=== PATIENT | female | born 1940 | race Caucasian/White ===

== ENCOUNTER → 2022-06-24 09:34 | Outpatient (CLI) | payer MEDICARE, BC, SELFPAY ==
--- NOTE | 2022-06-24 | DI.NM.S_ITS ---
PROCEDURE: NM BONE SCAN WHOLE BODY RADIOPHARMACEUTICAL: 19.2 mCi Tc-99m MDP IV. INDICATIONS: HISTORY OF BREAST CANCER TECHNIQUE: Delayed whole-body scintigrams were obtained approximately 3-4 hours after intravenous injection of radiotracer. Anterior and posterior views were acquired from vertex to feet. COMPARISON: None. FINDINGS: Status post right above knee amputation. Degenerative uptake of radiotracer at the acromioclavicular and glenohumeral joints as well as the bilateral hip joints. No evidence of metastatic disease. IMPRESSION: No evidence of bony metastatic disease. Dictated by: Jorge Luis Barajas M.D. on 06/24/2022 at 14:33 Transcribed by: KETAN on 06/24/2022 at 14:34 Approved by: Jorge Luis Barajas M.D. on 06/24/2022 at 16:05
== END ==
PROVIDERS: Referring Provider Internal Medicine Hematology & Oncology; Visit Provider Internal Medicine Hematology & Oncology
DX: C54.1 Malignant neoplasm of endometrium; Z85.3 Personal history of malignant neoplasm of breast
CPT/HCPCS: 78306; A9503

== ENCOUNTER → 2022-06-24 09:39 | Outpatient (CLI) | payer MEDICARE, BC, SELFPAY ==
--- NOTE | 2022-06-24 | DI.MRI.S_ITS ---
PROCEDURE: MR BRAIN (IAC) WWO CON INDICATIONS: SUDDEN HEARING LOSS/TINNITUS TECHNIQUE: Noncontrast sagittal T1 spin echo, axial FLAIR, axial gradient echo, axial diffusion and ADC through the brain. Axial thin-slice 3D CISS, coronal TruFISP, axial T1 spin echo with fat saturation through the internal auditory canals. After the administration of contrast, thin slice axial and coronal T1 spin echo with fat saturation through the internal auditory canals, and axial and coronal and sagittal T1 spin echo with fat saturation through the brain. COMPARISON: None. FINDINGS: Image quality: Excellent. Cerebellopontine angles: No cerebellopontine angle masses. Inner ear structures appear normally formed. No suspicious enhancement in the internal auditory canal or along the course of the 7th cranial nerve. CSF spaces: Ventricles are normal in size and shape. No extra-axial fluid collections. Basal cisterns are patent. Brain: No intracranial bleeds or mass effects. Mild diffuse cerebral volume loss. Mild degree of patchy high FLAIR signal within the periventricular and subcortical white matter. Dejesus-white matter interface is intact. No abnormal intracranial enhancement. Diffusion weighted images demonstrate no acute ischemic insults. Brainstem appears normal. Normal intravascular flow voids are present. Skull and face: Calvarial marrow signal is normal. Orbits appear normal. Sinuses: Sinuses and mastoids are clear. IMPRESSION: 1. Negative evaluation of the internal auditory canals. No explanation for hearing loss or tinnitus. 2. Mild volume loss and small vessel ischemic disease. 3. No acute process. No recent infarct. Dictated by: Jorge Luis Barajas M.D. on 06/24/2022 at 12:34 Transcribed by: KETAN on 06/24/2022 at 12:42 Approved by: Jorge Luis Barajas M.D. on 06/24/2022 at 16:03
== END ==
PROVIDERS: PCP Internal Medicine; Referring Provider Otolaryngology; Visit Provider Otolaryngology
DX: H91.22 Sudden idiopathic hearing loss, left ear; H93.12 Tinnitus, left ear; C54.1 Malignant neoplasm of endometrium; Z85.3 Personal history of malignant neoplasm of breast
CPT/HCPCS: 70553; 78306; A9503

== ENCOUNTER → 2022-08-05 14:34 | Outpatient (CLI) | payer MEDICARE, BC, SELFPAY ==
--- NOTE | 2022-08-05 | DI.MRI.S_ITS ---
BREAST MRI OF BOTH BREASTS: 08/05/2022 CLINICAL: Breast Cancer. Comparison is made to exams dated: 10/24/2021 ultrasound, 10/24/2021 ultrasound, 10/24/2021 mammogram - [facility], 11/06/2017 mammogram - [facility], and 07/27/2015 mammogram - [facility]. PROCEDURE: MR BREAST BI WO/W CON INDICATIONS: BREAST CANCER TECHNIQUE: The patient was placed prone in a dedicated breast imaging coil. Precontrast axial STIR and 3D FLASH without fat saturation sequences were obtained. Both before and after bolus injection of contrast, sequential 1-minute axial 3D FLASH with fat saturation sequences for 3 time points, with subtraction images and maximum intensity projections (MIP's) generated. Delayed sagittal FLASH images with fat saturation were also obtained. Computer-aided detection, including computer algorithm analysis of MRI image data for lesion detection and characterization, pharmacokinetic analysis, with further physician review for interpretation, was performed. FINDINGS: Image quality: Good Mild background parenchymal enhancement in the right breast. Minimal background parenchymal enhancement of the left breast. Right breast: There are numerous intrinsically T1 hyperintense tubular structures right breast. On subtraction images, no nodular enhancement is noted. There is no suspicious non-mass enhancement, mass, or focus identified. Left breast: No suspicious enhancement, mass, or focus identified. Miscellaneous: No suspicious adenopathy identified in the axillary or internal mammary chains. Partially visualized suspected fibrotic changes are seen in the anterior lungs. Postsurgical changes are present. IMPRESSION: BENIGN IMPRESSION: No suspicious mass, non-mass enhancement, or focus in either breast. Numerous T1 hyperintense tubular structures are present, without suspicious nodular enhancement on subtraction images, suspected dilated ducts with hemorrhagic or proteinaceous debris. Clinical correlation is recommended for any discharge. If present, consider followup mammogram and ultrasound depending on clinical suspicion. In addition to MRI, consider continued mammographic surveillance given cancer history. In addition, consider CT chest to further evaluate the lung opacities, likely representing radiation fibrosis. BIRADS 2 COMMENT: The imaging literature indicates that a negative contrast breast MRI examination has a high sensitivity and a moderate specificity for detecting and excluding invasive carcinomas to a detection threshold of 3-5 mm; nonetheless, appropriate clinical and mammographic follow-up are recommended. MRI is not sensitive for detecting DCIS (ductal carcinoma in situ) and may not detect large invasive neoplasms that show only minimal enhancement such as mucinous carcinoma. If there are suspicious calcifications or clinically worrisome palpable masses, then biopsy should still be considered. Invasive neoplasms can be hidden by co-existent and benign enhancement caused by mastitis, hormone therapy effects, radiation therapy, , and recent biopsy or surgery. False positive examinations can occur in a number of circumstances, including breasts that have recently been subject to invasive procedures and those that contain atypical ductal hyperplasia, hormonally stimulated glandular tissue, fat necrosis, or radial scars. This exam was interpreted at Station ID: [id number]. Electronically Signed By: Nate Katz M.D. lc/:08/06/2022 13:00:42 letter sent: Clinical Evaluation ACR BI-RADS Category 2: Benign Finding(s) [id number]
== END ==
PROVIDERS: PCP Internal Medicine; Referring Provider Internal Medicine Hematology & Oncology; Visit Provider Internal Medicine Hematology & Oncology
DX: Z12.39 Encounter for other screening for malignant neoplasm of breast (principal); Z85.3 Personal history of malignant neoplasm of breast
CPT/HCPCS: 77049; A9579

== ENCOUNTER → 2023-07-09 12:33 | Outpatient (CLI) | payer MEDICARE, BC, SELFPAY ==
--- NOTE | 2023-07-09 12:35 | DI.MRI.S_ITS ---
PROCEDURE: MR AB PANCREATIC/MRCP PROTOCOL INDICATIONS: OSTEOSARCOMA RIGHT LEG TECHNIQUE: Coronal HASTE through the abdomen, axial 2-D FLASH in- and [id number], and breath-hold T2 FSE with fat saturation through the biliary system and pancreas. Oblique coronal and axial thin-slice HASTE, radial thick-slab HASTE centered on the extrahepatic bile ducts. Intravenous secretin: Not requested. COMPARISON: None. FINDINGS: Image quality: Diagnostic. Gallbladder: No gallstones or wall thickening. Biliary ducts: No biliary dilation. Pancreas: No ductal dilation. OTHER: Lung bases: Unremarkable. Liver: No solid mass. Multiple hepatic cysts, without suspicious features. Spleen: Size is within normal limits. Adrenal Glands: No adrenal nodules. Kidneys and Ureters: No hydronephrosis. No solid mass. No complex renal cystic lesion which requires follow up. Bosniak 2 cystic mass along the superior pole of the right kidney containing a thin internal septation. Stomach and Bowel: Normal colonic caliber, without significant wall thickening. Peritoneum: No abnormal intraperitoneal fluid. No free air. Ventral Wall: No hernia. Abdominal Nodes: No retroperitoneal or mesenteric adenopathy by size criteria. Vessels: Aorta and inferior vena cava are normal in size. Bones: No aggressive osseous abnormality. IMPRESSION: No pancreatic abnormality. Benign renal and hepatic cysts. Dictated by: Zachariah Ochoa M.D. on 07/09/2023 at 18:29 Approved by: Zachariah Ochoa M.D. on 07/09/2023 at 18:30
== END ==
PROVIDERS: PCP Internal Medicine; Referring Provider Internal Medicine; Visit Provider Internal Medicine
DX: C40.21 Malignant neoplasm of long bones of right lower limb (principal); D13.6 Benign neoplasm of pancreas; K76.89 Other specified diseases of liver; N28.1 Cyst of kidney, acquired
CPT/HCPCS: 74183; A9579

== ENCOUNTER 2023-11-25 12:48 | Emergency (ER) | payer MEDICARE, BC, SELFPAY ==
[2023-11-25 13:04] VITALS: BP 196/91; PULSE 83; RESP 18; TEMP 36.8; O2SAT 97; BMI 18.1
--- NOTE | 2023-11-25 13:59 | ED.EYEPROB ---
HPI - Eye Problem General Chief complaint: Eye Problems Stated complaint: very painful R bloody eye Time Seen by Provider: 11/25/23 13:59 Source: patient Mode of arrival: Wheelchair History of Present Illness HPI Narrative: Patient with past medical history of autoimmune disease comes into the ED from home for evaluation of redness to her red eye. She states that she woke up noticed some redness. States that it is slightly painful when touching but does not have any actual pain with extraocular motion. Denies any trauma or falls. Does wear glasses at baseline denies any difficulty with her vision. No other symptoms no known trauma not on any blood thinners Related Data Allergies Allergy/AdvReac Type Severity Reaction Status Date / Time oxycodone Allergy Verified 11/25/23 13:11 Penicillins Allergy Verified 11/25/23 13:11 streptomycin Allergy Verified 11/25/23 13:11 hydrocodone AdvReac Verified 11/25/23 13:11 Review of Systems Review of Systems Narrative: General: Denies fever, chills, weight loss HEENT: Positive redness to the right eye, Denies headache, eye drainage, eye irritation, head trauma, sore throat, voice change Cardiovascular: Denies any chest pain, palpitations, shortness of breath, tachycardia Respiratory: Denies any shortness of breath, cough, wheeze, stridor GI/: Denies any abdominal pain, nausea, vomiting, diarrhea, bright red blood per rectum, melanotic stools, urinary frequency, urinary retention, dysuria, hematuria MSK: Denies any joint pain, muscle pains, swelling Skin: Denies any rashes, lesions, discoloration Neuro: Denies any headache, lightheadedness, dizziness, fainting, weakness Psych: Denies SI/HI Patient History Social History Smoking Status: Never smoker Smoking Status: Never smoker Substance Use Type: does not use Exam Narrative Exam Narrative: General: Cooperative, comfortable, well-developed, not in acute distress HEENT: Normocephalic, atraumatic, PERRLA, eyelids normal, subsequent conjunctiva hemorrhage noted to the right eye not crossing the pupil, pressure in left eye 19, pressure in right eye 18, no visual corneal abrasions using fluorescein staining and Wood's lamp. Negative Rhea sign Neck: Active full range of motion, atraumatic Chest: Normal to inspection, negative crepitus, no overlying erythema ecchymosis Respiratory: Normal respiratory effort, not in acute respiratory distress, clear to auscultation bilaterally negative cough, wheeze, tachypnea, rhonchi, rales Cardiology: Regular rate rhythm negative gallop, murmur, rubs GI/: Normal to inspection, soft, nonrigid, no tenderness to palpation, exam deferred MSK: Full range of active range of motion of all 4 extremities, atraumatic Skin: No rashes lesions noted Neuro: Alert awake oriented x3, moves all 4 extremities spontaneously, cranial nerves intact, able to answer all questions appropriately follows commands appropriately Psych: Cooperative, negative suicidal or homicidal ideations Initial Vital Signs Initial Vital Signs: Vital Signs Temperature 98.2 F 11/25/23 13:04 Pulse Rate 83 11/25/23 13:04 Respiratory Rate 18 11/25/23 13:04 Blood Pressure 196/91 H 11/25/23 13:04 Pulse Oximetry 97 11/25/23 13:04 Oxygen Delivery Method Room Air 11/25/23 13:04 Course Orders Ordered: ED Orders 11/25/23 13:13 Consult to FERMENTER - Rework Machine Operator Stat Discontinued Medications Fluorescein Sodium (Fluorescein 1 Mg Strip) 1 mg EYE-BOTH NOW ONE Stop: 11/25/23 14:05 Last Admin: 11/25/23 14:13 Dose: 1 mg Documented By: JEANNIE Proparacaine HCl (Proparacaine 0.5% Ophth Mirela) 1 drops EYE-BOTH NOW ONE Stop: 11/25/23 14:05 Last Admin: 11/25/23 14:13 Dose: 1 drop Documented By: JEANNIE Vital Signs Vital signs: Vital Signs - 8 hr 11/25/23 16:28 Pulse Rate 81 Respiratory Rate 18 Pulse Oximetry 97 Oxygen Delivery Method Room Air MDM - Eye Problem Differential Diagnosis Differential diagnosis: Likely corneal abrasion, conjunctivitis, hyphema and subconjunctival hemorrhage MDM Narrative Medical decision making narrative: Patient is a 83-year-old female with past medical history of autoimmune disease comes into the ED for nontraumatic redness to her right eye. States that she noticed the redness when she woke up states that it does not affect her vision, does not describe any actual pain to the eye itself but does notice some irritation near her eyelid. Denies any foreign body sensation to her eye. Patient had fluorescein staining with Wood's lamp in the emergency department that did not show any corneal abrasions. Ocular pressures were within normal limits left eye 19, right eye 18. Patient did not have any signs of proptosis, no extraocular motion pain. Patient wears glasses at baseline visual acuity is at baseline. Physical exam and history consistent with subconjunctival hemorrhage. She was instructed to follow up with Ophthalmology and primary care doctor in outpatient setting. She will be safe for discharge home with outpatient follow up Discharge Plan Departure Patient Disposition: Home Clinical Impression: Subconjunctival hemorrhage Activity Restrictions/Additional Instructions: Please follow-up with your county director welfare and primary care doctor Please read the discharge instructions sheet carefully and bring all papers to all doctor follow-up visits, as it may contain information that your doctor may want to see. Disease processes change and evolve, if your symptoms worsen or if you develop any new symptoms that are concerning to you please return for evaluation. Your evaluation today does not show any evidence of any life-threatening/serious illnesses requiring admission to the hospital or surgery. Please follow-up with your doctor for re-evaluation in approximately 1 day. Seek immediate medical attention for any worrisome symptoms. Referrals: Kenney Anand MD [Primary Care Provider] - Stand Alone Forms: Patient Portal/API
[2023-11-25] MEDS: FLUORESCEIN 1 MG STRIP EYE-BOTH (14:13)
[2023-11-25] MEDS: PROPARACAINE 0.5% OPHTH SOL 1 DROPS EYE-BOTH (14:13)
[2023-11-25 16:28] VITALS: PULSE 81; RESP 18; O2SAT 97
--- NOTE | 2023-11-25 16:49 | CM.SWNOTE ---
ED BOAT CARPENTER MECHANIC Note Patient presents to the ED via wheelchair with friend due to concern for right eye pain. Patient has hx of macular degeneration, cataracts and hx of breast cancer. It is reported that patient's spouse at [facility] a few weeks ago. Patient's PCP is Kenney Anand, patient has Medicare and supplemental [employer] insurance. BOAT CARPENTER MECHANIC receives consult due to concern for patient's grief and anxiety. BOAT CARPENTER MECHANIC enters room to meet with patient, present in room is patient's friend who provided patient with transportation to the hospital. Patient is wheelchair dependent with one leg. It is reported that patient resides alone in [facility], patient hires a cone treater for duties that she cannot manage around the house and is otherwise independent with ADLs. 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 Patient endorses frustration regarding her spouse's and how he and anxiety and grief. Patient states her life was very intertwined with her spouse and she is having difficulty moving forward towards the new normal. Patient endorses she uses [facility]rans[facility] and relies on friends for transport, patient states she does not have a family or a sense of community. Patient did meet her friend though [facility] and patient is connected with them but has difficulty utilizing services that accommodate her in her wheelchair. Patient endorses interest in a Pentec[employer] counselor and she wants to work through her grief and anger. BOAT CARPENTER MECHANIC provides patient with lists of Pentec[employer]ism counselors that accept her insurance, BOAT CARPENTER MECHANIC also provides patient with grief counseling resources through [facility]. Plan: patient to d/c to home upon medical clearance with friend. JOSÉ Law
== END 2023-11-25 16:28 | disposition home or self-care (01) ==
PROVIDERS: Emergency Provider Student in an Organized Health Care Education/Training Program; PCP Internal Medicine
DX: H11.31 Conjunctival hemorrhage, right eye (principal)
CPT/HCPCS: 99282; 99283

== ENCOUNTER → 2024-03-03 11:51 | Outpatient (CLI) | payer MEDICARE, BC, SELFPAY | PROVIDERS: Family Provider Internal Medicine; PCP Internal Medicine; Referring Provider Internal Medicine; Visit Provider Internal Medicine | DX: R20.2 Paresthesia of skin (principal) | CPT/HCPCS: 95886; 95912 ==

== ENCOUNTER → 2024-03-03 13:15 | Outpatient (CLI) | payer MEDICARE, BC, SELFPAY ==
--- NOTE | 2024-03-03 13:16 | DI.MRI.S_ITS ---
PROCEDURE: MR HEAD/BRAIN WO CON INDICATIONS: severe frontal headaches TECHNIQUE: Non-contrast axial T1 spin echo, axial T2 fast spin echo, sagittal and axial FLAIR, coronal T2 fast spin echo, axial gradient echo, axial diffusion and ADC through the brain. COMPARISON: [facility], MR, MR IAC (BRAIN) WWO CON, 06/24/2022, 10:50. FINDINGS: Image quality: Excellent. CSF spaces: Ventricles appear symmetric in size and shape. Basal cisterns are patent. No extra-axial fluid collections. Brain: No intracranial bleeds or mass effects. There is cerebral volume loss for age. There are periventricular and deep white matter chronic small vessel ischemic changes. Brainstem appears normal. Diffusion-weighted images show no acute infarct. No chronic ischemic insults. Normal intravascular flow voids are present. Skull and face: Calvarial bone marrow is normal in signal. Orbits are normal. Sinuses: Sinuses and mastoids are clear. IMPRESSION: No imaging explanation is found for this patient's presenting symptoms. To the limits of this noncontrast study, no findings of intracranial masses or mass effect can be seen. No hydrocephalus or brain edema can be seen. Dictated by: Rajeev Fenton M.D. on 03/03/2024 at 16:07 Approved by: Rajeev Fenton M.D. on 03/03/2024 at 16:11
== END ==
PROVIDERS: Family Provider Internal Medicine; PCP Internal Medicine; Referring Provider Internal Medicine; Visit Provider Internal Medicine
DX: R51.9 Headache, unspecified (principal); R20.2 Paresthesia of skin
CPT/HCPCS: 70551; 95886; 95912

== ENCOUNTER 2024-06-02 23:27 | Observation (INO) | payer MEDICARE, BC, SELFPAY ==
[2024-06-02 23:31] VITALS: BP 203/98; PULSE 88; RESP 22; TEMP 35.9; O2SAT 96; BMI 16.1
[2024-06-03] VITALS (16 sets, daily range): BP systolic 128–221; BP diastolic 60–102; PULSE 72–96; RESP 14–21; TEMP 36.3–36.4; O2SAT 94–96; BMI 16.1
[2024-06-03 00:26] LABS: Add Manual Diff / Slide Review NO; Basophils Absolute Auto 100 /uL (0-100); Basophils Percent Auto 1.4 % (0-2); Eosinophils Absolute Auto 300 /uL (0-450); Eosinophils Percent Auto 3.2 % (2-4); Hematocrit 39.4 % (36-46); Hemoglobin 13.2 g/dL (12.0-16.0); Lymphocytes Absolute Auto 1100 /uL (1100-4500); Lymphocytes Percent Auto 12.5 % (25-40); Mean Corpuscular HGB Conc 33.6 % (30-36); Mean Corpuscular Hemoglobin 29.3 PG (26-34); Mean Corpuscular Volume 87.2 fL (80-100); Monocytes Absolute Auto 400 /uL (0-900); Monocytes Percent Auto 4.6 % (3-14); Neutrophils Absolute Auto 7000 /uL (1500-7000); Neutrophils Percent Auto 78.3 % (50-75); Platelet Count 238 X10^3/uL (150-400); Red Blood Cell Count 4.51 X10^6/uL (4.0-5.2); Red Cell Distribution Width 13.7 % (11.6-14.8)
[2024-06-03 00:36] LABS: Alanine Aminotransferase 24 IU/L (<35); Albumin 4.4 g/dL (3.5-5.0); Albumin Globulin Ratio 1.3 (1.0-2.8); Alkaline Phosphatase 94 U/L (38-126); Aspartate Aminotransferase 38 IU/L (14-36); BUN Creatinine Ratio 30.9 (6-22); Bilirubin Total 0.2 mg/dL (0.2-1.3); Blood Urea Nitrogen 17 mg/dL (7-17); Calcium 9.6 mg/dL (8.4-10.2); Carbon Dioxide 31 mmol/L (22-32); Chloride 93 mmol/L (98-107); Estimated Glomerular Filt Rate > 60 mL/min (>60); Globulin 3.5 g/dL (1.7-4.1); Glucose 112 mg/dL (70-99); HEMOLYSIS < 15 (0-50); Lipase 62 U/L (23-300); Potassium 4.6 mmol/L (3.4-5.1); Sodium 129 mmol/L (137-145); Total Protein 7.9 g/dL (6.3-8.2)
[2024-06-03 01:20] LABS: Appearance Urine UA CLEAR; Bilirubin Urine UA NEGATIVE (NEGATIVE); Color Urine UA YELLOW; Glucose Urine UA NEGATIVE (Negative); Ketones Urine UA NEGATIVE (NEGATIVE); Leukocyte Esterase Urine UA NEGATIVE (NEGATIVE); Nitrite Urine UA NEGATIVE (Negative); Occult Blood Urine UA NEGATIVE (Negative); Protein Urine UA NEGATIVE (Negative); Urobilinogen Urine UA 0.2 E.U./dL (0.2)
--- NOTE | 2024-06-03 01:24 | ED.ABDPAIN ---
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 She also reports straining to have a bowel movement only thin pieces come out and she feels nauseous. She was seen 2 weeks ago in the ER for similar complaints and dx suspect gastritis, esophagitis, an entericcolitis with inflammation at the distal colon and rectum and also large fecal loading in the upstream but no definite bowel obstruction. GI was subsequently consulted and told to obtain stool studies and patient was discharged on baclofen and Pepcid. Other than what is stated 14 point review of system is negative. Related Data Home Medications Medication Instructions Recorded Confirmed baclofen 5 mg tablet 5 mg PO 3XD PRN muscle spasm 06/03/24 06/03/24 famotidine 40 mg tablet 40 mg PO QPM heartburn 06/03/24 06/03/24 losartan 25 mg tablet 12.5 mg PO BID 06/03/24 06/03/24 methocarbamol 500 mg tablet 500 mg PO 3XD 06/03/24 06/03/24 verapamil 120 mg tablet 120 mg PO TID 06/03/24 06/03/24 Allergies Allergy/AdvReac Type Severity Reaction Status Date / Time oxycodone Allergy Verified 11/25/23 13:11 Penicillins Allergy Verified 11/25/23 13:11 streptomycin Allergy Verified 11/25/23 13:11 hydrocodone AdvReac Verified 11/25/23 13:11 Review of Systems Review of Systems ROS Unobtainable: All systems reviewed & are unremarkable except as noted in HPI and below Patient History Social History Smoking Status: Never smoker Smoking Status: Never smoker Exam Narrative Exam Narrative: GENERAL: [83] year old patient appears stated age. Thin appearing patient, in mild distress. HEAD: Atraumatic. Normocephalic. EYES: Pupils equal round and reactive. Extraocular motions intact. No scleral icterus. No injection or drainage. ENT: Nose without bleeding, purulent drainage. Throat without erythema, tonsillar hypertrophy or exudate. Airway patent. NECK: Trachea midline. Non tender CARDIOVASCULAR: Regular rate and rhythm without murmurs, gallops, or rubs. RESPIRATORY: Clear to auscultation. Breath sounds equal bilaterally. No wheezes, rales, or rhonchi. GASTROINTESTINAL: Abdomen soft, diffuse TTP but no rebound rigidity or guarding, nondistended. EXTREMITIES: No edema or joint tenderness. R BKA moving all extremities no obvious bone or joint deformity BACK: Nontender without deformity or crepitance. No flank tenderness. NEURO: AOx3. SKIN: No rash or erythema of visible areas Initial Vital Signs Initial Vital Signs: Vital Signs Temperature 96.7 F L 06/02/24 23:31 Pulse Rate 88 06/02/24 23:31 Respiratory Rate 22 06/02/24 23:31 Blood Pressure 203/98 H 06/02/24 23:31 Pulse Oximetry 96 06/02/24 23:31 Oxygen Delivery Method Room Air 06/02/24 23:31 Course Orders Ordered: ED Orders 06/03/24 00:05 EKG-12 Lead Stat 06/03/24 00:15 Complete Blood Count AUTO DIFF Stat Comprehensive Metabolic Panel Stat Lipase Stat 06/03/24 01:15 Urinalysis and Microscopic Stat 06/03/24 01:26 CT abdomen pelvis w con Stat Urine Microscopic Stat Ondansetron HCl (Ondansetron 4 Mg/2 Ml Inj) 4 mg IV NOW PRN PRN Reason: Nausea And Vomiting Ondansetron HCl (Ondansetron 4 Mg Odt) 4 mg PO NOW PRN PRN Reason: Nausea And Vomiting Discontinued Medications Hydromorphone HCl (Hydromorphone 1 Mg Inj) 1 mg IV NOW ONE Stop: 06/03/24 01:27 Last Admin: 06/03/24 01:40 Dose: 1 mg Documented By: Lactated Ringer's (Lactated Ringers) 500 mls @ 500 mls/hr IV BOLUS ONE Stop: 06/03/24 02:32 Last Infusion: 06/03/24 03:15 Dose: Infused Documented By: Admin: 06/03/24 01:41 Dose: 500 mls/hr Documented By: Magnesium Citrate (Magnesium Citrate 300 Ml Solution) 300 ml PO NOW ONE Stop: 06/03/24 03:18 Last Admin: 06/03/24 03:55 Dose: 300 ml Documented By: JORJE Metoclopramide HCl (Metoclopramide 10 Mg/2 Ml Inj) 10 mg IV NOW ONE Stop: 06/03/24 03:51 Last Admin: 06/03/24 03:54 Dose: 10 mg Documented By: JORJE Ondansetron HCl (Ondansetron 4 Mg/2 Ml Inj) 4 mg IV NOW ONE Stop: 06/03/24 01:27 Last Admin: 06/03/24 01:40 Dose: 4 mg Documented By: Sennosides (Sennosides 8.6 Mg Tablet) 8.6 mg PO NOW ONE Stop: 06/03/24 04:38 Last Admin: 06/03/24 04:40 Dose: 8.6 mg Documented By: JORJE Sodium Biphosphate/Sodium Phosphate (Fleets Enema) 1 each [place] NOW ONE Stop: 06/03/24 03:19 Last Admin: 06/03/24 03:54 Dose: 1 each Documented By: JORJE Vital Signs Vital signs: Vital Signs - 8 hr 06/02/24 23:31 06/03/24 00:30 06/03/24 01:30 Temperature 96.7 F L Pulse Rate 88 86 90 Respiratory Rate 22 21 20 Blood Pressure 203/98 H 200/84 H Pulse Oximetry 96 95 95 Oxygen Delivery Method Room Air Room Air 06/03/24 02:30 06/03/24 03:35 06/03/24 03:35 Temperature Pulse Rate 85 86 Respiratory Rate 20 21 Blood Pressure 221/102 H Pulse Oximetry 96 95 Oxygen Delivery Method Room Air MDM - Abdominal Pain Lab Data 06/03/24 00:15 06/03/24 00:15 Labs: Lab Results 06/03/24 06/03/24 Range/Units 00:15 01:15 WBC 9.0 (4.5-11.0) X10^3/uL RBC 4.51 (4.0-5.2) X10^6/uL Hgb 13.2 (12.0-16.0) g/dL Hct 39.4 (36-46) % MCV 87.2 (80-100) fL MCH 29.3 (26-34) PG MCHC 33.6 (30-36) % RDW 13.7 (11.6-14.8) % Plt Count 238 (150-400) X10^3/uL Neut % (Auto) 78.3 H (50-75) % Lymph % (Auto) 12.5 L (25-40) % [place] % (Auto) 4.6 (3-14) % Eos % (Auto) 3.2 (2-4) % Baso % (Auto) 1.4 (0-2) % Neut # (Auto) 7000 (2786-9342) /uL Lymph # (Auto) 1100 (6371-0841) /uL [place] # (Auto) 400 (0-900) /uL Eos # (Auto) 300 (0-450) /uL Baso # (Auto) 100 (0-100) /uL Sodium 129 L (137-145) mmol/L Potassium 4.6 (3.4-5.1) mmol/L Chloride 93 L (98-107) mmol/L Carbon Dioxide 31 (22-32) mmol/L BUN 17 (7-17) mg/dL Creatinine 0.55 (0.52-1.04) mg/dL Estimated GFR > 60 (>60) mL/min BUN/Creatinine Ratio 30.9 H (6-22) Glucose 112 H (70-99) mg/dL Calcium 9.6 (8.4-10.2) mg/dL Total Bilirubin 0.2 (0.2-1.3) mg/dL AST 38 H (14-36) IU/L ALT 24 (<35) IU/L Alkaline Phosphatase 94 (38-126) U/L Total Protein 7.9 (6.3-8.2) g/dL Albumin 4.4 (3.5-5.0) g/dL Globulin 3.5 (1.7-4.1) g/dL Albumin/Globulin Ratio 1.3 (1.0-2.8) Lipase 62 (23-300) U/L Urine Color Yellow Urine Appearance Clear Urine pH 7.0 (4.5-8.0) Ur Specific [place] 1.010 (1.000-1.035) Urine Protein Negative (Negative) Urine Glucose (UA) Negative (Negative) g/dL Urine Ketones Negative (NEGATIVE) Urine Occult Blood Negative (Negative) Urine Nitrate Negative (Negative) Urine Bilirubin Negative (NEGATIVE) Urine Urobilinogen 0.2 (0.2) E.U./dL Ur Leukocyte Esterase Negative (NEGATIVE) Urine RBC None seen (0-5/HPF) Urine WBC 0-1/hpf (0-5/HPF) Ur Squamous Epith Cells 0-1 /hpf (0-5/HPF) Amorphous Sediment 2+ Urine Bacteria Few (2-10) H (None) Ur Culture Indicated? Cult not indicated Vol Urine Centrifuged 10ml (spun) Imaging Data CT scan - abdomen/pelvis: Radiologist's Impression: [address] [address] [address] Scan Report Signed Patient: Lucy Torres MR#: [id number] : 1940 Acct:[id number] Age/Sex: 83 / F Date of Service: 06/03/24 Loc: ED Accession Number: [id number] Procedure: CT abdomen pelvis w con Ordering Provider: Chay Eckert D.O. PROCEDURE: CT ABDOMEN PELVIS W CON INDICATIONS: abd pain TECHNIQUE: After the administration of intravenous contrast, axial sections acquired from the lung bases to the pubic symphysis. Coronal and sagittal reformats were performed. For radiation dose reduction, the following was used: automated exposure control, adjustment of mA and/or kV according to patient size. COMPARISON: None. FINDINGS: Image quality: Diagnostic. 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 ABDOMEN: Liver: No solid mass. Multiple hepatic cysts. Gallbladder: No radiopaque gallstones or wall thickening. Biliary ducts: No biliary dilation. Pancreas: No ductal dilation. Spleen: Size is within normal limits. Adrenal Glands: No adrenal nodules. Kidneys and Ureters: No hydronephrosis. No solid mass. No complex renal cystic lesion which requires follow up. Stomach and Bowel: Gastric wall thickening. Prominent small-bowel mucosal thickening. Dilated loops of small bowel, without discernible transition point. Large colonic stool load. Fecal debris within the small bowel. Peritoneum: No abnormal intraperitoneal fluid. No free air. Ventral Wall: No significant ventral hernia. Abdominal Nodes: No retroperitoneal or mesenteric adenopathy by size criteria. Vessels: Aorta and inferior vena cava are normal in size. PELVIS: Pelvic Organs: Unremarkable. Bladder: No bladder wall thickening, accounting for underdistention. Pelvic Nodes: No enlarged lymph nodes. Miscellaneous: No inguinal hernias are seen. Bones: No aggressive osseous abnormality. Degenerative disc disease of the lumbar spine. Surgical pinning of the right femoral neck. IMPRESSION: Mildly distended loops of small bowel, without discernible transition point. Additionally, there is a large colonic stool load. Overall, findings suggest obstipation. Superimposed gastroenteritis is also a consideration, given prominent gastric rugae and prominent small bowel mucosal folds. Other chronic findings as above. Dictated by: Zachariah Ochoa M.D. on 06/03/2024 at 2:04 Approved by: Zachariah Ochoa M.D. on 06/03/2024 at 2:08 [facility] Narrative Medical decision making narrative: All lab work, vital signs, nurse triage note, medication list, imaging studies, and all previous visits reviewed. Patient given LR 500 mL bolus x1, zofran 4mg IV, dilaudid 1mg IV and mag citrate 1/2 bottle, senna, fleet enema and soap sudded enema with no relief of her symptoms and no BM. Differential diagnosis includes constipation, small-bowel obstruction, kidney stone, kidney infection, diverticulitis, and pancreatitis. [facility] ER visit was also reviewed in detail on visit date 05/20/2024. Case was discussed with Dr. Valentino when hospitalist on-call who graciously accepted the patient for inpatient admission. Case was also discussed with Dr. Sean Lee at the request of hospitalist Service who felt it was appropriate to admit the patient and to start IV fluids and enemas and see how patient does and responds. Discharge Plan Departure Patient Disposition: Admitted As Inpatient Clinical Impression: Obstipation, Acute hyponatremia, Hypertensive urgency Prescriptions: No Action methocarbamol 500 mg tablet 500 mg PO 3XD famotidine 40 mg tablet 40 mg PO QPM verapamil 120 mg tablet 120 mg PO TID losartan 25 mg tablet 25 mg PO DAILY baclofen 5 mg tablet 5 mg PO 3XD PRN (Reason: muscle spasm) Referrals: Kenney Anand MD [Primary Care Provider] -
[2024-06-03 01:27] LABS: Amorphous Sediment Urine 2+; Bacteria Urine Few (2-10); Culture Indicated Urine Cult Not Indicated; RBC Urine None Seen (0-5/HPF); Squamous Epithelial Cell Urine 0-1 /HPF (0-5/HPF); Urine Volume 10mL (spun); WBC Urine 0-1/HPF (0-5/HPF)
[2024-06-03] MEDS: ONDANSETRON 4 MG/2 ML INJ IV ×2 (01:40→15:51)
[2024-06-03] MEDS: HYDROMORPHONE 1 MG INJ IV (01:40)
[2024-06-03] MEDS: LACTATED RINGERS 500 ML IV (01:41)
[2024-06-03] MEDS: METOCLOPRAMIDE 10 MG/2 ML INJ IV (03:54)
[2024-06-03] MEDS: FLEETS ENEMA 1 EACH PR (03:54)
[2024-06-03] MEDS: MAGNESIUM CITRATE 300 ML SOLUTION PO (03:55)
[2024-06-03] MEDS: SENNOSIDES 8.6 MG TABLET PO (04:40)
--- NOTE | 2024-06-03 05:31 | PC.NURSE ---
Patient has had 1/2 bottle of mag citrate, 1 mineral oil fleets enema, and 1 soap suds enema, and 1 Senna tablet. No stool impaction appreciated for digital exam. No BM from either enema, only return of enema solution, flatus, and very very small balls of stool x 4. No urge/sensation of needing to defecate appreciated by patient either.
--- NOTE | 2024-06-03 06:48 | P.HP_ITS ---
History of Present Illness History of Present Illness Chief complaint: belly ache Narrative: 83-year-old female with past medical history of right BKA secondary to osteosarcoma, rheumatoid arthritis, sciatica, hypertension, and chronic bronchitis presents with abdominal bloating and sciatica pain. Per the patient's report, about 2 weeks ago, the patient was seen in outside ER with similar complaints. The patient was diagnosed with suspected gastritis, esophagitis and enterocolitis with inflammation of the distal colon and rectum with large fecal loading and upstream but no small bowel obstruction. Patient was subsequently discharged and to follow-up with GI as outpatient which the patient has not been seen yet. The patient was discharged about baclofen and Pepcid. The patient states that over the last few days the patient continued to drink lots of fluid to keep her hydrated as well as trying to eat food with high fibers. Despite that the patient states that her bowel movement has been very limited and she feels constipated. Otherwise the patient denies any fever, chills, chest pain or shortness of breath. The patient does have some significant nausea but denies any vomiting. In the emergency room, the patient was hemodynamically stable. Labs shows a sodium of 129. There is no sign of sepsis. CT scan of the abdomen shows significant constipation with constipation but no sign of SBO. General surgeon was consulted and recommended that we admit the patient to medical floor as and treat the patient's severe constipation with IV fluid and bowel regimen including laxative and enema and enemas. The surgeon will consult and the patient this morning. PFSH Social History Smoking Status: Never smoker Meds Home Medications and Allergies Home Medications Medication Instructions Recorded Confirmed Type baclofen 5 mg tablet 5 mg PO 3XD PRN muscle spasm 06/03/24 06/03/24 History famotidine 40 mg tablet 40 mg PO QPM heartburn 06/03/24 06/03/24 History losartan 25 mg tablet 12.5 mg PO BID 06/03/24 06/03/24 History methocarbamol 500 mg tablet 500 mg PO 3XD 06/03/24 06/03/24 History verapamil 120 mg tablet 120 mg PO TID 06/03/24 06/03/24 History Allergies Allergy/AdvReac Type Severity Reaction Status Date / Time oxycodone Allergy Verified 11/25/23 13:11 Penicillins Allergy Verified 11/25/23 13:11 streptomycin Allergy Verified 11/25/23 13:11 hydrocodone AdvReac Verified 11/25/23 13:11 Review of Systems Review of Systems ROS: Yes All systems reviewed with the patient and are negative except as otherwise documented Exam Vital Signs (past 8 hours): - 06/02/24 23:31 06/03/24 00:30 06/03/24 01:30 Temperature 96.7 F L Pulse Rate 88 86 90 Respiratory Rate 22 21 20 Blood Pressure 203/98 H 200/84 H Pulse Oximetry 96 95 95 Oxygen Delivery Method Room Air Room Air 06/03/24 02:30 06/03/24 03:35 06/03/24 03:35 Temperature Pulse Rate 85 86 Respiratory Rate 20 21 Blood Pressure 221/102 H Pulse Oximetry 96 95 Oxygen Delivery Method Room Air 06/03/24 05:37 06/03/24 05:41 06/03/24 05:41 Temperature Pulse Rate 91 H 87 Respiratory Rate 18 18 Blood Pressure 188/88 H Pulse Oximetry 95 95 Oxygen Delivery Method Room Air Room Air 06/03/24 06:37 06/03/24 06:38 06/03/24 06:40 Temperature Pulse Rate 90 96 H Respiratory Rate 18 Blood Pressure 195/86 H Pulse Oximetry 95 96 Oxygen Delivery Method Oxygen Delivery Method Room Air Narrative Exam Narrative: Physical Exam: GENERAL: The patient is not in any acute distressed. Awake and alert. HEENT: Nonicteric sclerae, PERRLA, EOMI. Oropharynx clear. Moist mucous membranes. Conjunctivae appear well perfused. HEART: Regular rate and rhythm without murmurs. No lower extremities edema. LUNGS: Clear to auscultation bilaterally. No wheezing, crackles or rhonchi ABDOMEN: Soft, positive bowel sounds, nontender. SKIN: No rash, no excessive bruising, petechiae, or purpura. NEUROLOGIC: AxO x 3. Cranial nerves II-XII intact without motor/sensory deficit. Objective Labs 06/03/24 00:15 06/03/24 00:15 Labs: Laboratory Results - last 24 hr 06/03/24 06/03/24 00:15 01:15 WBC 9.0 RBC 4.51 Hgb 13.2 Hct 39.4 MCV 87.2 MCH 29.3 MCHC 33.6 RDW 13.7 Plt Count 238 Neut % (Auto) 78.3 H Lymph % (Auto) 12.5 L [place] % (Auto) 4.6 Eos % (Auto) 3.2 Baso % (Auto) 1.4 Neut # (Auto) 7000 Lymph # (Auto) 1100 [place] # (Auto) 400 Eos # (Auto) 300 Baso # (Auto) 100 Sodium 129 L Potassium 4.6 Chloride 93 L Carbon Dioxide 31 BUN 17 Creatinine 0.55 Estimated GFR > 60 BUN/Creatinine Ratio 30.9 H Glucose 112 H Calcium 9.6 Total Bilirubin 0.2 AST 38 H ALT 24 Alkaline Phosphatase 94 Total Protein 7.9 Albumin 4.4 Globulin 3.5 Albumin/Globulin Ratio 1.3 Lipase 62 Urine Color Yellow Urine Appearance Clear Urine pH 7.0 Ur Specific [place] 1.010 Urine Protein Negative Urine Glucose (UA) Negative Urine Ketones Negative Urine Occult Blood Negative Urine Nitrate Negative Urine Bilirubin Negative Urine Urobilinogen 0.2 Ur Leukocyte Esterase Negative Urine RBC None seen Urine WBC 0-1/hpf Ur Squamous Epith Cells 0-1 /hpf Amorphous Sediment 2+ Urine Bacteria Few (2-10) H Ur Culture Indicated? Cult not indicated Vol Urine Centrifuged 10ml (spun) Assessment & Plan Assessment & Plan narrative: Severe constipation/obstipation. Admit the patient to medical inpatient. Continue bowel regimen includes laxative and enemas. Monitor for any bowel movements. Appreciate further input and management per general surgery. Hyponatremia. Mild. Likely from dehydration. NS and repeat sodium in the morning. Current sodium is 129. Dehydration. IV fluid. Hypertension. Monitor blood pressure and resume home medication. As needed IV hydralazine also available. DVT prophylaxis heparin subcu. CODE STATUS full code. Disposition likely home in 2 days. - As the provider of this telehealth evaluation, requested by the patient's evaluating physician, I attest that I introduced myself to the patient, provided my credentials and determined that telemedicine via a real-time, 2 way interactive audio and video platform is an appropriate and effective means of providing this service. - I reviewed the patient's chart and had a discussion with the member of the patient's treatment team. - The patient and I mutually agreed with continuation of this evaluation via telemedicine. The patient consented for the telemedicine evaluation. - This virtual encounter was taken place from [place]. The encounter was approximately 35 minutes. The nurse was present during the entire time of the encounter and was able to move the stethoscope in appropriate directions. The patient was evaluated at [facility]. Time-Based Coding :: [TOTAL MINUTES] spent with patient and on the chart (including review of chart, obtaining history, exam, reviewing outside data, placing orders, documenting exam and treatment plan, and counseling patient) on [DATE].
[2024-06-03] MEDS: LACTATED RINGERS 500 ML 100 ML IV (06:59)
[2024-06-03 07:06] LABS: Add Manual Diff / Slide Review NO; Basophils Absolute Auto 0 /uL (0-100); Basophils Percent Auto 0.4 % (0-2); Eosinophils Absolute Auto 0 /uL (0-450); Eosinophils Percent Auto 0.4 % (2-4); Hematocrit 37.9 % (36-46); Hemoglobin 12.8 g/dL (12.0-16.0); Lymphocytes Absolute Auto 600 /uL (1100-4500); Lymphocytes Percent Auto 8.7 % (25-40); Mean Corpuscular HGB Conc 33.7 % (30-36); Mean Corpuscular Hemoglobin 29.4 PG (26-34); Mean Corpuscular Volume 87.2 fL (80-100); Monocytes Absolute Auto 200 /uL (0-900); Monocytes Percent Auto 2.4 % (3-14); Neutrophils Absolute Auto 6500 /uL (1500-7000); Neutrophils Percent Auto 88.1 % (50-75); Platelet Count 229 X10^3/uL (150-400); Red Blood Cell Count 4.34 X10^6/uL (4.0-5.2); Red Cell Distribution Width 13.8 % (11.6-14.8); White Blood Cell Count 7.4 X10^3/uL (4.5-11.0)
[2024-06-03 07:14] LABS: Blood Urea Nitrogen 14 mg/dL (7-17); Carbon Dioxide 32 mmol/L (22-32); Chloride 91 mmol/L (98-107); Estimated Glomerular Filt Rate > 60 mL/min (>60); Glucose 112 mg/dL (70-99); Potassium 4.6 mmol/L (3.4-5.1); Sodium 129 mmol/L (137-145)
[2024-06-03 07:15] LABS: HEMOLYSIS 104 (0-50)
[2024-06-03] MEDS: LOSARTAN 25 MG TABLET 12.5 MG PO ×2 (08:50→20:38)
[2024-06-03] MEDS: methocarbamoL 500 MG TABLET PO ×2 (08:51→20:38)
[2024-06-03] MEDS: HEPARIN 5,000 UNIT/ML VIAL 5000 UNIT SUBCUT ×2 (08:51→20:37)
[2024-06-03] MEDS: VERAPAMIL 80 MG TABLET 120 MG PO ×2 (09:56→20:38)
[2024-06-03] MEDS: DOCUSATE 100 MG CAPSULE PO ×2 (09:56→20:38)
--- NOTE | 2024-06-03 11:48 | PC.NURSE ---
Pt arrived from ED in personal wheelchair at 0930, A&Ox4, c/o mild abdominal pain and sharp sciatica to RLE, does not want pain medicine at this time. VSS on RA. BKA to RLE, numbness and tingling to RLE below the knee, and bilat hands. Lungs CTA, bowel sounds present in all 4 quadrants. Pt transfers very easily between her personal wheelchair and the bed, SBA. Pt oriented to room and call light. Bed in low position, call light within reach.
--- NOTE | 2024-06-03 12:01 | P.HP_ITS ---
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 Per the patient's report, about 2 weeks ago, the patient was seen in outside ER with similar complaints. The patient was diagnosed with suspected gastritis, esophagitis and enterocolitis with inflammation of the distal colon and rectum with large fecal loading and upstream but no small bowel obstruction. Patient was subsequently discharged and to follow-up with GI as outpatient which the patient has not been seen yet. The patient was discharged about baclofen and Pepcid. The patient states that over the last few days the patient continued to drink lots of fluid to keep her hydrated as well as trying to eat food with high fibers. Despite that the patient states that her bowel movement has been very limited and she feels constipated. Otherwise the patient denies any fever, chills, chest pain or shortness of breath. The patient does have some significant nausea but denies any vomiting. In the emergency room, the patient was hemodynamically stable. Labs shows a sodium of 129. There is no sign of sepsis. CT scan of the abdomen shows significant constipation with constipation but no sign of SBO. General surgeon was consulted and recommended that we admit the patient to medical floor as and treat the patient's severe constipation with IV fluid and bowel regimen including laxative and enema and enemas. The surgeon will consult and the patient this morning. S: She lives in [facility] and relates having colonoscopy several weeks ago as a screening test. She also notes no history of constipation but has been constipated for several days. She was tried a variety of things including suppositories at home. She received 2 enemas and magnesium citrate in the emergency department. She had a small stool. She was abdominal cramping and denies nausea. She was had anorexia. She was originally from [facility]. She has been living in [place] for the past several years. She also notes that she has a history of intermittent hyponatremia and had been told to fluid restrict at 1 point by her doctor. She does not have a nephrologists. [facility] Social History household members: none alcohol intake: never Meds Home Medications and Allergies Home Medications Medication Instructions Recorded Confirmed Type baclofen 5 mg tablet 5 mg PO 3XD PRN muscle spasm 06/03/24 06/03/24 History famotidine 40 mg tablet 40 mg PO QPM heartburn 06/03/24 06/03/24 History losartan 25 mg tablet 12.5 mg PO BID 06/03/24 06/03/24 History methocarbamol 500 mg tablet 500 mg PO 3XD 06/03/24 06/03/24 History verapamil 120 mg tablet 120 mg PO TID 06/03/24 06/03/24 History Allergies Allergy/AdvReac Type Severity Reaction Status Date / Time oxycodone Allergy Verified 11/25/23 13:11 Penicillins Allergy Verified 11/25/23 13:11 streptomycin Allergy Verified 11/25/23 13:11 hydrocodone AdvReac Verified 11/25/23 13:11 Review of Systems Review of Systems Narrative: All else reviewed and otherwise unremarkable except as noted in the history and physical. Exam Vital Signs (past 8 hours): - 06/03/24 05:37 06/03/24 05:41 06/03/24 05:41 Temperature Pulse Rate 91 H 87 Respiratory Rate 18 18 Blood Pressure 188/88 H Pulse Oximetry 95 95 Oxygen Delivery Method Room Air Room Air 06/03/24 06:37 06/03/24 06:38 06/03/24 06:40 Temperature Pulse Rate 90 96 H Respiratory Rate 18 Blood Pressure 195/86 H Pulse Oximetry 95 96 Oxygen Delivery Method 06/03/24 08:53 06/03/24 08:53 06/03/24 09:30 Temperature 97.6 F Pulse Rate 96 H 94 H Respiratory Rate 14 Blood Pressure 151/72 H 159/75 H Pulse Oximetry 95 94 Oxygen Delivery Method 06/03/24 09:56 Temperature Pulse Rate 96 H Respiratory Rate Blood Pressure 151/72 H Pulse Oximetry Oxygen Delivery Method Oxygen Delivery Method Room Air Narrative Exam Narrative: NAD, alert and oriented, fluent speech, calm. Underweight. Normocephalic skull, EOMI, anicteric sclera, symmetric pupils. Oropharynx unremarkable, no droop. Neck supple, midline trachea, no adenopathy. Lungs clear, normal rate and effort. Heart regular, no murmur gallop or rub. Abdomen is soft, non distended and non tender. Extremities are free of edema. Chronic right BKA. Wheelchair dependent. Skin is free of rash or lesions. Joints are not swollen or deformed. Judgment appears to be normal. 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 ABDOMEN: Liver: No solid mass. Multiple hepatic cysts. Gallbladder: No radiopaque gallstones or wall thickening. Biliary ducts: No biliary dilation. Pancreas: No ductal dilation. Spleen: Size is within normal limits. Adrenal Glands: No adrenal nodules. Kidneys and Ureters: No hydronephrosis. No solid mass. No complex renal cystic lesion which requires follow up. Stomach and Bowel: Gastric wall thickening. Prominent small-bowel mucosal thickening. Dilated loops of small bowel, without discernible transition point. Large colonic stool load. Fecal debris within the small bowel. Peritoneum: No abnormal intraperitoneal fluid. No free air. Ventral Wall: No significant ventral hernia. Abdominal Nodes: No retroperitoneal or mesenteric adenopathy by size criteria. Vessels: Aorta and inferior vena cava are normal in size. PELVIS: Pelvic Organs: Unremarkable. Bladder: No bladder wall thickening, accounting for underdistention. Pelvic Nodes: No enlarged lymph nodes. Miscellaneous: No inguinal hernias are seen. Bones: No aggressive osseous abnormality. Degenerative disc disease of the lumbar spine. Surgical pinning of the right femoral neck. IMPRESSION: Mildly distended loops of small bowel, without discernible transition point. Additionally, there is a large colonic stool load. Overall, findings suggest obstipation. Superimposed gastroenteritis is also a consideration, given prominent gastric rugae and prominent small bowel mucosal folds. Other chronic findings as above. Labs 06/03/24 06:45 06/03/24 06:45 Labs: Laboratory Results - last 24 hr 06/03/24 06/03/24 06/03/24 00:15 01:15 06:45 WBC 9.0 7.4 RBC 4.51 4.34 Hgb 13.2 12.8 Hct 39.4 37.9 MCV 87.2 87.2 MCH 29.3 29.4 MCHC 33.6 33.7 RDW 13.7 13.8 Plt Count 238 229 Neut % (Auto) 78.3 H 88.1 H Lymph % (Auto) 12.5 L 8.7 L [place] % (Auto) 4.6 2.4 L Eos % (Auto) 3.2 0.4 L Baso % (Auto) 1.4 0.4 Neut # (Auto) 7000 6500 Lymph # (Auto) 1100 600 L [place] # (Auto) 400 200 Eos # (Auto) 300 0 Baso # (Auto) 100 0 Sodium 129 L 129 L Potassium 4.6 4.6 Chloride 93 L 91 L Carbon Dioxide 31 32 BUN 17 14 Creatinine 0.55 0.40 L Estimated GFR > 60 > 60 BUN/Creatinine Ratio 30.9 H 35.0 H Glucose 112 H 112 H Calcium 9.6 9.0 Total Bilirubin 0.2 AST 38 H ALT 24 Alkaline Phosphatase 94 Total Protein 7.9 Albumin 4.4 Globulin 3.5 Albumin/Globulin Ratio 1.3 Lipase 62 Urine Color Yellow Urine Appearance Clear Urine pH 7.0 Ur Specific [place] 1.010 Urine Protein Negative Urine Glucose (UA) Negative Urine Ketones Negative Urine Occult Blood Negative Urine Nitrate Negative Urine Bilirubin Negative Urine Urobilinogen 0.2 Ur Leukocyte Esterase Negative Urine RBC None seen Urine WBC 0-1/hpf Ur Squamous Epith Cells 0-1 /hpf Amorphous Sediment 2+ Urine Bacteria Few (2-10) H Ur Culture Indicated? Cult not indicated Vol Urine Centrifuged 10ml (spun) Assessment & Plan Assessment & Plan narrative: 1. Presumed severe constipation, present on admission and active. 2. Acute on chronic hyponatremia, present on admission and active. 3. Dehydration, present on admission and active. 4. Chronic hypertension, present on admission and active. 5. Chronic right BKA from osteosarcoma, and wheelchair dependent. Present on admission and stable. 6. Underweight (BMI 16), present on admission and active. PLAN: -IV fluids, saline. -monitor sodium. -clear liquid diet. -trial of GoLYTELY at 2 L initially. Anticipate 1 midnight of care, observation status as supported. Full resuscitation. Time-Based Coding :: 35 min spent with patient and on the chart (including review of chart, obtaining history, exam, reviewing outside data, placing orders, documenting exam and treatment plan, and counseling patient) on 06/03. Quality MIPS - Admit I confirm the patient?s Advance Care Plan is present, Code status is documented, Surrogate decision maker is in patient?s record [If Yes, STOP here]: Yes MIPS - Meds 'Current medications' to include all prescriptions, [id number] products, herbals, cannabis/cannabidiol products, and vitamin/mineral/dietary (nutritional) supplements. I have utilized all available resources to obtain, update, or review the patient?s current medications. [If Yes, STOP here]: Yes
[2024-06-03] MEDS: HYDROMORPHONE 0.5 MG INJ IV (15:51)
--- NOTE | 2024-06-03 18:07 | PM.CN.IH.1 ---
History of Present Illness Consult details Date Patient Seen: 06/03/24 Time Patient Seen: 18:07 Chief complaint: belly ache Narrative: Lucy is an 83 year old woman who presented to the ER last night with back and abdominal pain and constipation for several weeks. Apparently she did have a colonoscopy a few weeks ago at [facility] and she wonders if her gut microbiology was thrown out of order. She has multiple complaints ranging from sciatica to a perceived risk of blood clots. She reports that her last bowel movement was Thursday morning and she has not been passing gas recently. She vomited yesterday. In the ER here she had a CT scan which shows some loops of small bowel containing fluid but no stefanie obstruction as well as a high fecal load in her colon. She believes that simethicone helps her bowels move. Her prior surgical history includes hysterectomy. Meds Home Medications and Allergies Home Medications Medication Instructions Recorded Confirmed Type baclofen 5 mg tablet 5 mg PO 3XD PRN muscle spasm 06/03/24 06/03/24 History famotidine 40 mg tablet 40 mg PO QPM heartburn 06/03/24 06/03/24 History losartan 25 mg tablet 12.5 mg PO BID 06/03/24 06/03/24 History methocarbamol 500 mg tablet 500 mg PO 3XD 06/03/24 06/03/24 History verapamil 120 mg tablet 120 mg PO TID 06/03/24 06/03/24 History Allergies Allergy/AdvReac Type Severity Reaction Status Date / Time oxycodone Allergy Verified 11/25/23 13:11 Penicillins Allergy Verified 11/25/23 13:11 streptomycin Allergy Verified 11/25/23 13:11 hydrocodone AdvReac Verified 11/25/23 13:11 Exam Vital Signs (past 8 hours): - 06/03/24 17:20 Pulse Rate 82 Blood Pressure 145/71 H Oxygen Delivery Method Room Air Narrative Exam Narrative: Abdomen is soft, nontender Objective Labs 06/03/24 06:45 06/03/24 06:45 Labs: Laboratory Results - last 24 hr 06/03/24 06/03/24 06/03/24 00:15 01:15 06:45 WBC 9.0 7.4 RBC 4.51 4.34 Hgb 13.2 12.8 Hct 39.4 37.9 MCV 87.2 87.2 MCH 29.3 29.4 MCHC 33.6 33.7 RDW 13.7 13.8 Plt Count 238 229 Neut % (Auto) 78.3 H 88.1 H Lymph % (Auto) 12.5 L 8.7 L [place] % (Auto) 4.6 2.4 L Eos % (Auto) 3.2 0.4 L Baso % (Auto) 1.4 0.4 Neut # (Auto) 7000 6500 Lymph # (Auto) 1100 600 L [place] # (Auto) 400 200 Eos # (Auto) 300 0 Baso # (Auto) 100 0 Sodium 129 L 129 L Potassium 4.6 4.6 Chloride 93 L 91 L Carbon Dioxide 31 32 BUN 17 14 Creatinine 0.55 0.40 L Estimated GFR > 60 > 60 BUN/Creatinine Ratio 30.9 H 35.0 H Glucose 112 H 112 H Calcium 9.6 9.0 Total Bilirubin 0.2 AST 38 H ALT 24 Alkaline Phosphatase 94 Total Protein 7.9 Albumin 4.4 Globulin 3.5 Albumin/Globulin Ratio 1.3 Lipase 62 Urine Color Yellow Urine Appearance Clear Urine pH 7.0 Ur Specific [place] 1.010 Urine Protein Negative Urine Glucose (UA) Negative Urine Ketones Negative Urine Occult Blood Negative Urine Nitrate Negative Urine Bilirubin Negative Urine Urobilinogen 0.2 Ur Leukocyte Esterase Negative Urine RBC None seen Urine WBC 0-1/hpf Ur Squamous Epith Cells 0-1 /hpf Amorphous Sediment 2+ Urine Bacteria Few (2-10) H Ur Culture Indicated? Cult not indicated Vol Urine Centrifuged 10ml (spun) PFSH Social History household members: none Tobacco & Substance Use Smoking Status: Never smoker alcohol intake: never Assessment & Plan Assessment and plan (1) Obstipation: Status: Acute Plan No clinical evidence of bowel obstruction. She can be discharged once she has passed some flatus. Time-Based Coding :: [TOTAL MINUTES] spent with patient and on the chart (including review of chart, obtaining history, exam, reviewing outside data, placing orders, documenting exam and treatment plan, and counseling patient) on [DATE]. PROFEE Charge Codes Inpatient or Observation consultation: [id number]
[2024-06-03] MEDS: SIMETHICONE 80 MG TABLET PO (18:59)
[2024-06-03] MEDS: SENNOSIDES 8.6 MG TABLET 17.2 MG PO (20:38)
[2024-06-03] MEDS: SODIUM CHLORIDE 0.9% FLUSH 10 ML IV (20:46)
[2024-06-04] MEDS: HYDROMORPHONE 0.5 MG INJ IV ×2 (01:45→15:39)
--- NOTE | 2024-06-04 04:22 | PC.NURSE ---
shift supervisor film processing Pt notified RN that she was feeling freezing and did not want to have any more fluids. RN paused IVF and notified Provider. Warm blankets provided and hot tea, Pt stated too much IV fluids will make me crazy. Provider agreed to hold IVF.
[2024-06-04 06:53] LABS: Hematocrit 33.7 % (36-46); Hemoglobin 11.6 g/dL (12.0-16.0); Mean Corpuscular HGB Conc 34.6 % (30-36); Mean Corpuscular Volume 86.7 fL (80-100); Platelet Count 203 X10^3/uL (150-400); Red Blood Cell Count 3.88 X10^6/uL (4.0-5.2); Red Cell Distribution Width 13.9 % (11.6-14.8); White Blood Cell Count 5.9 X10^3/uL (4.5-11.0)
[2024-06-04 07:01] LABS: BUN Creatinine Ratio 18.6 (6-22); Blood Urea Nitrogen 8 mg/dL (7-17); Calcium 8.5 mg/dL (8.4-10.2); Carbon Dioxide 32 mmol/L (22-32); Chloride 100 mmol/L (98-107); Estimated Glomerular Filt Rate > 60 mL/min (>60); Glucose 86 mg/dL (70-99); HEMOLYSIS < 15 (0-50); Potassium 4.2 mmol/L (3.4-5.1); Sodium 133 mmol/L (137-145)
--- NOTE | 2024-06-04 09:27 | PC.NURSE ---
Day shift: Pt did not want to take morning meds because she doesn't want to have to pay for them. AM meds not given at this time. Will also make Dr Gibson aware. CM is aware also.
[2024-06-04] MEDS: BISACODYL 10 MG SUPP PR (11:24)
--- NOTE | 2024-06-04 11:39 | CM.IDA ---
Initial Brief DCP Assessment Patient is 83 y/o female who presents to due to concern for Abdominal bloating and sciatica pain. Patient admitted to acute care due to concern for severe constipation,obstipation, acute hyponatremia, and hypertensive urgency.. Patient's PCP is Dr. Kenney Anand, patient has Medicare and Supplemental [employer] Insurance. BREAKER MACHINE TENDER reviews EMR. Patient resides alone in [place], patient is wheelchair dependent with one leg, patient is independent with ADLS, hires a project accountant as needed. Patient utilizes paratransit and friends for transportation. Plan: DCP to f/u for any identified DCP needs, no needs at this time, patient to d/c to home upon medical clearance. JOSÉ Law Discharge Planning/Care Management CM Discharge Assessment Start: 06/04/24 11:32 Freq: Status: Active Protocol: Document 06/04/24 11:34 LN (Rec: 06/04/24 11:39 LN [id number]) Discharge Planning Assessment Assigned Road Machinery Inspector JOSÉ Bustillo Advance Directives? No History Provided By Medical Record Has Patient been admitted in last 30 No days? Prior Living Arrangements House Household Members none Type of transporation used prior to Public Transportation admit Comment Patient utilizes paratransit and relies on others. Independent with ADL's Yes Is patient alert and oriented? Yes DME Already Rented / Owned Wheelchair
[2024-06-04] MEDS: polyethylene glycoL 3350 17 GM POWD.PACK PO ×2 (12:23→15:39)
--- NOTE | 2024-06-04 14:06 | PC.NURSE ---
Day shift: Pt didn't want to take the afternoon meds. She said I don't want to have to pay for them.
--- NOTE | 2024-06-04 15:33 | PM.PN.1 ---
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 She was found to have mild hyponatremia, CT evidence of obstipation. She reportedly had a colonoscopy several weeks ago. She was given 2 liters of go lytely yesterday. Gen surgery consulted yesterday as well. Patient is yelling out frequently secondary to pain. When I entered the room, she is sitting uncomfortably in her wheelchair. She complains of spasms that come unexpectedly in her right hip/stump. She states she has a history of the same that can last up to 3 days. Usually, she will go to the ER when her Tylenol No. 4 isn't working and end up getting IV hydromorphone injections. Those are typically successful and she goes home. However, she notes that she typically has not had constipation associated with it. She finds that currently her constipation is exacerbating her pain and she has not been able to get comfortable. She is concerned about being observation status and has been declining much of the medication due to concerns about cost. She states she is not declining the pain medication. She did refuse the GoLYTELY that was ordered yesterday as she did undergo a recent bowel prep. She states she did pass a small hard stool ball today but has not had relief of her abdominal discomfort as of yet. She states she recently underwent colonoscopy and endoscopic ultrasound evaluating for possible malignancy related to an elevated CA 19-9. She reports the colonoscopy and endoscopic ultrasound were negative. She was found to have pancreatic cysts, but no evidence of malignancy. This was done at [facility]. Exam Vital Signs (past 8 hours): - 06/03/24 17:20 Pulse Rate 82 Blood Pressure 145/71 H Oxygen Delivery Method Room Air Narrative Exam Narrative: GEN: Elderly female, Alert and oriented x 3, uncomfortable appearing, frequently yells out with spasms HEENT:NC, Face symmetric CHEST: Respiratory excursions symmetric, CTAB CV: RRR, no M/R/G ABD: Soft, painful with palpation, BT present in all 4 quadrants, no organomegaly or masses EXTR: warm, well perfused, no C/C/E SKIN: warm and dry, no rash NEURO: Alert and oriented x 3, nonfocal Objective Labs 06/04/24 06:39 06/04/24 06:39 Labs: Laboratory Results - last 24 hr 06/03/24 06/03/24 06/03/24 00:15 01:15 06:45 WBC 9.0 7.4 RBC 4.51 4.34 Hgb 13.2 12.8 Hct 39.4 37.9 MCV 87.2 87.2 MCH 29.3 29.4 MCHC 33.6 33.7 RDW 13.7 13.8 Plt Count 238 229 Neut % (Auto) 78.3 H 88.1 H Lymph % (Auto) 12.5 L 8.7 L [place] % (Auto) 4.6 2.4 L Eos % (Auto) 3.2 0.4 L Baso % (Auto) 1.4 0.4 Neut # (Auto) 7000 6500 Lymph # (Auto) 1100 600 L [place] # (Auto) 400 200 Eos # (Auto) 300 0 Baso # (Auto) 100 0 Sodium 129 L 129 L Potassium 4.6 4.6 Chloride 93 L 91 L Carbon Dioxide 31 32 BUN 17 14 Creatinine 0.55 0.40 L Estimated GFR > 60 > 60 BUN/Creatinine Ratio 30.9 H 35.0 H Glucose 112 H 112 H Calcium 9.6 9.0 Total Bilirubin 0.2 AST 38 H ALT 24 Alkaline Phosphatase 94 Total Protein 7.9 Albumin 4.4 Globulin 3.5 Albumin/Globulin Ratio 1.3 Lipase 62 Urine Color Yellow Urine Appearance Clear Urine pH 7.0 Ur Specific [place] 1.010 Urine Protein Negative Urine Glucose (UA) Negative Urine Ketones Negative Urine Occult Blood Negative Urine Nitrate Negative Urine Bilirubin Negative Urine Urobilinogen 0.2 Ur Leukocyte Esterase Negative Urine RBC None seen Urine WBC 0-1/hpf Ur Squamous Epith Cells 0-1 /hpf Amorphous Sediment 2+ Urine Bacteria Few (2-10) H Ur Culture Indicated? Cult not indicated Vol Urine Centrifuged 10ml (spun) [facility] Social History household members: none Smoking Status: Never smoker alcohol intake: never Assessment & Plan Assessment & Plan narrative: 1. Presumed severe constipation Patient declined the GoLYTELY yesterday. She has had a suppository this morning without much effect. She took MiraLax earlier today as well. She is on Colace as well as senna at night. Will give a 2nd dose of MiraLax, milk of magnesia every 4 hours until she has successful bowel movements, and a dose of lactulose. She did have prune juice earlier today as well. We will continue monitoring. She has no concerning evidence for obstruction. 2. Acute on chronic hyponatremia Sodium is improved today at 133. 3. Dehydration She remains on LR at 100 mL/hour. Will plan to saline lock her fluids when she successfully moves her bowels. 4. Chronic hypertension Blood pressure is were initially quite high but have normalized since. Will continue monitoring. She has been declining medications here. 5. Chronic right BKA from osteosarcoma As above, she has been having pain in her hips/stump related to possible underlying sciatica. Continue Dilaudid as needed. She is declining additional medication. 6. Protein calorie malnutrition She has been undergoing workup on an outpatient basis for unintended weight loss. Code status Full Prophylaxis On heparin Disposition Await resolution of obstipation Time-Based Coding :: [TOTAL MINUTES] spent with patient and on the chart (including review of chart, obtaining history, exam, reviewing outside data, placing orders, documenting exam and treatment plan, and counseling patient) on [DATE]. Quality VTE Deep Vein Thrombosis/Pulmonary Embolism Present on Admission: No
[2024-06-04] MEDS: LACTULOSE 20 GM/30 ML SOLUTION PO (15:57)
[2024-06-04 20:13] VITALS: BP 146/82; PULSE 89; RESP 19; TEMP 36.7; O2SAT 92
[2024-06-04] MEDS: DOCUSATE 100 MG CAPSULE PO (21:05)
[2024-06-04] MEDS: HEPARIN 5,000 UNIT/ML VIAL 5000 UNIT SUBCUT (21:06)
[2024-06-04] MEDS: SODIUM CHLORIDE 0.9% FLUSH 10 ML IV (21:13)
[2024-06-04] MEDS: MAGNESIUM HYDROXIDE 30 ML UDC PO (21:15)
[2024-06-05] MEDS: HYDROMORPHONE 0.5 MG INJ IV (00:19)
[2024-06-05 03:28] VITALS: BP 187/88; PULSE 100; RESP 19; TEMP 36.1; O2SAT 92
[2024-06-05 03:32] VITALS: BP 187/88; PULSE 99
[2024-06-05] MEDS: LOSARTAN 25 MG TABLET 12.5 MG PO ×2 (03:32→08:08)
[2024-06-05 03:33] VITALS: BP 189/88; PULSE 99
[2024-06-05] MEDS: VERAPAMIL 80 MG TABLET 120 MG PO ×2 (03:33→08:08)
--- NOTE | 2024-06-05 03:35 | PC.NURSE ---
maintenance technician 2nd shift patient initially refused all her BP medications at the 2100 med pass. and now requested she get her blood pressure medications since she developed a headache and her BP was 189/88. RN pulled her 2100 BP meds ( view EMAR).
[2024-06-05 04:05] VITALS: BP 165/75; PULSE 76
[2024-06-05 05:23] LABS: Hematocrit 36.1 % (36-46); Hemoglobin 12.1 g/dL (12.0-16.0); Mean Corpuscular HGB Conc 33.5 % (30-36); Mean Corpuscular Hemoglobin 29.3 PG (26-34); Mean Corpuscular Volume 87.6 fL (80-100); Platelet Count 202 X10^3/uL (150-400); Red Blood Cell Count 4.11 X10^6/uL (4.0-5.2); Red Cell Distribution Width 13.7 % (11.6-14.8)
[2024-06-05 05:34] LABS: BUN Creatinine Ratio 24.3 (6-22); Blood Urea Nitrogen 9 mg/dL (7-17); Calcium 8.6 mg/dL (8.4-10.2); Carbon Dioxide 33 mmol/L (22-32); Chloride 96 mmol/L (98-107); Estimated Glomerular Filt Rate > 60 mL/min (>60); Glucose 93 mg/dL (70-99); HEMOLYSIS < 15 (0-50); Potassium 4.1 mmol/L (3.4-5.1); Sodium 131 mmol/L (137-145)
[2024-06-05 12:00] VITALS: BP 175/87; PULSE 87
[2024-06-05 12:08] VITALS: BP 175/87; PULSE 87; RESP 16; TEMP 36.4; O2SAT 96
--- NOTE | 2024-06-05 14:41 | CM.DPNOTE ---
DC Note Patient has been discharged. Met w/patient x2 today. Patient is upset that she is being discharged and is not in the problem solving mind set. Offered assistance with resources referral and transportation assist and patient declines saying she doesn't need this GUM COOK's help. Patient reports she has made numerous calls to friends and there will likely be someone to transport and help her home later today. Discussed above with bedside RN. Patient is able to self transfer in/out of her wheelchair. Declines needing help with taxi voucher this date. Plan: Discharge home via friends to transport. outpatient follow up. SILVERIO
--- NOTE | 2024-06-05 16:50 | PC.NURSE ---
Day shift: Discharge instructions and education gone over by RN Madhavi Saini PIV removed prior to discharge. Pt had a friend from [employer] come pick her up. All belongings with patient. PCT Bessie escorted patient to exit.
--- NOTE | 2024-06-12 20:09 | P.DS_ITS ---
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 Per the patient's report, about 2 weeks ago, the patient was seen in outside ER with similar complaints. The patient was diagnosed with suspected gastritis, esophagitis and enterocolitis with inflammation of the distal colon and rectum with large fecal loading and upstream but no small bowel obstruction. Patient was subsequently discharged and to follow-up with GI as outpatient which the patient has not been seen yet. The patient was discharged about baclofen and Pepcid. The patient states that over the last few days the patient continued to drink lots of fluid to keep her hydrated as well as trying to eat food with high fibers. Despite that the patient states that her bowel movement has been very limited and she feels constipated. Otherwise the patient denies any fever, chills, chest pain or shortness of breath. The patient does have some significant nausea but denies any vomiting. In the emergency room, the patient was hemodynamically stable. Labs shows a sodium of 129. There is no sign of sepsis. CT scan of the abdomen shows significant constipation with constipation but no sign of SBO. General surgeon was consulted and recommended that we admit the patient to medical floor as and treat the patient's severe constipation with IV fluid and bowel regimen including laxative and enema and enemas. The surgeon will consult and the patient this morning. Discharge Providers Provider Date of admission: 06/03/24 06:26 Discharge Date: 06/05/24 Primary care physician: Kenney Anand MD Discharge provider: Amena Leung MD Summary Hospital Course Discharge Diagnosis: 1. Presumed severe constipation 2. Acute on chronic hyponatremia 3. Dehydration 4. Chronic hypertension 5. 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 Protein calorie malnutrition Hospital Course: Pt presented with increased constipation, likely related to increased use of Tylenol #3 for her back pain/spasms, which then was causing worsening back pain/spasms. She had no success with home treatment. She was admitted under observation status. She was concerned that she did not meet inpatient criteria and frequently declined medications d/t concerns over cost. Unfortunately, that made it more difficult to treat her constipation. On the date of admission, GoLytely was ordered but she declined it. She did take Miralax twice daily on 06/04, but did not take MOM q4 hrs as ordered. She had just one hard BM that day. She did have 2 additional BMs on the date of discharge but continued to feel as though she was constipated. She was encouraged to continue working on her bowel regimen at home, continue hydration and decrease use of the Tylenol #3 as able in order to decrease constipation. She is d/c'd in stable condition. Status at Discharge Cognitive/behavioral status at discharge: at baseline, oriented Functional status at discharge: wheelchair bound Overall status at discharge: patient is progressing back to baseline Time Spent with Patient Time spent: Greater than 30 minutes Exam Vital Signs (past 8 hours): Oxygen Delivery Method Room Air Oxygen Flow Rate 0 Narrative Exam Narrative: GEN: Elderly female, Alert and oriented x 3, uncomfortable appearing, but yelling out less frequently than prior day HEENT:NC, Face symmetric CHEST: Respiratory excursions symmetric, CTAB CV: RRR, no M/R/G ABD: Soft, mild discomfort with palpation, BT present in all 4 quadrants, no organomegaly or masses EXTR: warm, well perfused, no C/C/E SKIN: warm and dry, no rash NEURO: Alert and oriented x 3, nonfocal Objective Labs 06/05/24 05:05 06/05/24 05:05 [facility] Social History household members: none Smoking Status: Never smoker alcohol intake: never Discharge Plan Discharge Plan Patient Disposition: Home Provider Discharge Comment: 1) Take Miralax twice daily until you are having regular, normal consistency bowel movements. Then take miralax once a day. 2) Take senna twice daily 3) Drink warm prune juice or eat 2-3 prunes daily 4) If you don't have a BM at leave every 3 days, add MOM twice daily 5) Take Tylenol 1000 mg three times a day for your back pain/spasms 5) Use moist heat as tolerated for your back pain/spasms 6) I have referred you to see physical therapy for your back pain/spasms Discharge orders & Medications Prescriptions: New docusate sodium 100 mg capsule 100 mg PO BID Qty: 60 0RF baclofen 10 mg Tablet 5 mg PO TID PRN (Reason: muscle spasm) Qty: 30 0RF Continued methocarbamol 500 mg tablet 500 mg PO 3XD Rx Instructions: patient has not started medication yet famotidine 40 mg tablet 40 mg PO QPM Rx Instructions: Patient has not started taking this yet verapamil 120 mg tablet 120 mg PO TID Rx Instructions: changes based on levels, currently 120 mg 3X daily losartan 25 mg tablet 12.5 mg PO BID Rx Instructions: 1/2 tab 2X daily Discontinued baclofen 5 mg tablet 5 mg PO 3XD PRN (Reason: muscle spasm) Follow up/Referrals: Kenney Anand MD [Primary Care Provider] - Discharge Health Status Multidrug resistant organism: No MDRO Diet/Activity/Treatments Diet: Diet as Tolerated and Regular Activity: As tolerated Oxygen: N/A Other treatments: Outpatient PT for R hip/buttock spasms/pain - eval and treat Visit Report/Discharge Packet Instructions: DI for Constipation, DI for Back Pain With Sciatica, Piriformis Syndrome Stand Alone Forms: Patient Portal/API, Stroke Signs & Symptoms Discharge Data Primary Care Provider: Kenney Anand Attending Provider: Chicho Garcia Admit Date/Time: 06/03/24 06:26 Quality VTE Deep Vein Thrombosis/Pulmonary Embolism Present on Admission: No
== END 2024-06-05 16:25 | disposition home or self-care (01) ==
LOC: ED 06-03 06:26 → AC 06-03 07:13
PROVIDERS: Hospitalist; Admitting Provider Internal Medicine; Emergency Provider Family Medicine; Family Provider Internal Medicine; PCP Internal Medicine; Referring Provider Family Medicine; Visit Provider Internal Medicine
DX: K59.00 Constipation, unspecified (principal); E87.1 Hypo-osmolality and hyponatremia; R01.1 Cardiac murmur, unspecified; E86.0 Dehydration; E46 Unspecified protein-calorie malnutrition; Z68.1 Body mass index [BMI] 19.9 or less, adult; Z89.511 Acquired absence of right leg below knee; Z99.3 Dependence on wheelchair
CPT/HCPCS: 36415; 74177; 80048; 80053; 81001; 83690; 85025; 85027; 96361; 96374; 96375; 96376; 99284; G0378; J1171; J1644; J2405; J2765; Q9967